=== PATIENT | female | born 1990 | race Caucasian/White ===

== ENCOUNTER 2023-02-14 12:22 | Emergency (ER) | payer BC ==
[~2023-02-14] VITALS: Ht 167.6 cm; Wt 161.0 kg
--- OUTSIDE RECORDS SUMMARY | ~2023-02-14 | XMS | Continuity of Care Document ---
Demographics + + + | Address | [address] | | | [place] [address] | + + + | Preferred Language | Unknown | + + + | Marital Status | Never | + + + | Jewish Affiliation | Unknown | + + + | Race | White | + + + | Ethnic Group | Unknown | + + + Author + + + | Author | [facility] | + + + | Organization | [facility] | + + + | Address | [address] | | | [place] [address] | + + + | Phone | | + + + Care Team Providers + + + + | Care Ski Lift Mechanic Name | Role | Phone | + + + + Unavailable | Unavailable | + + + + Allergies No information. Encounters No information. Functional Status No information. Immunizations No information. Medications No information. Problems + + + + | date | description | facility | + + + + | 2022-12-12 11:24 | COUGH, UNSPECIFIED | [facility] | + + + + Procedures No information. Results/Labs No information. Social History No information. Vital Signs No information."
--- OUTSIDE RECORDS SUMMARY | ~2023-02-14 | XMS | Continuity of Care Document ---
Demographics + + + | Address | [address] | | | [place] [address] | + + + | Preferred Language | Unknown | + + + | Marital Status | Never | + + + | Taoism Affiliation | Unknown | + + + | Race | White | + + + | Ethnic Group | Unknown | + + + Author + + + | Author | [facility] | + + + | Organization | [facility] | + + + | Address | [address] | | | [place] [address] | + + + | Phone | | + + + Care Team Providers + + + + | Care Etl Lead Name | Role | Phone | + [...]
[2023-02-14] MEDS ORDERED: PAXLOVID 300-11 EACH PO (12:38)
[2023-02-14] MEDS ORDERED: CYCLOBENZAPRINE10 MG PO (12:38)
[2023-02-14 12:43] VITALS: BP 153/109
== END 2023-02-14 12:44 | disposition home or self-care (01) ==
LOC: ED 12:22
DX: U07.1 COVID-19 (principal); I10 Essential (primary) hypertension
CPT/HCPCS: 99283

== ENCOUNTER 2024-05-14 06:03 | Emergency (ER) | payer BC ==
[~2024-05-14] VITALS: Ht 167.6 cm; Wt 154.8 kg
[~2024-05-14 06:03] MED LIST: CYCLOBENZAPRINE10 MG PO; PAXLOVID 300-11 EACH PO
[2024-05-14 06:27] LABS: BASOPHILS 0.6 % (0-2); EOSINOPHILS 0.8 % (0-6); HEMATOCRIT 39.9 % (35.0-50.0); HEMOGLOBIN 13.5 g/dL (12.0-18.0); LYMPHOCYTES 39.9 % (24-44); MCH 29.4 (27-36); MCHC 33.9 g/dl (30-36); MONOCYTES 8.8 % (0-12); NEUTROPHILS 49.9 % (39-80); PLATELET COUNT 244 K/uL (140-440); RBC 4.59 M/ul (4.3-5.7); RDW 13.2 (10.5-15.0)
[2024-05-14] MEDS ORDERED: KETOROLAC TROMETHAMINE 30 MG/ML VIAL IV ONE (06:30)
[2024-05-14] MEDS ORDERED: ondansetron HCL 4 MG/2 ML VIAL IV ONE (06:30)
[2024-05-14] MEDS ORDERED: FAMOTIDINE 20 MG/ 2 ML VIAL IV ONE (06:30)
[2024-05-14] MEDS ORDERED: LACTATED RINGER'S 1,000 ML IV ONE (06:30)
[2024-05-14 06:37] LABS: ALBUMIN 3.9 g/dL (3.4-5.0); ANION GAP 14.9 (7-21); BILIRUBIN, TOTAL 0.3 ng/dL (0.2-1.0); BUN/CREATININE RATIO 14.1 (6.0-28.6); CALCIUM 9.7 mg/dL (8.5-10.1); CREATININE, SERUM 0.78 mg/dL (0.55-1.02); POTASSIUM 3.9 mmol/L (3.5-5.1); PROTEIN, TOTAL 7.8 g/dL (6.4-8.2)
[2024-05-14 07:32] LABS: BILIRUBIN, URINE NEGATIVE (negative); BLOOD/HGB, URINE TRACE-I (Negative); KETONE, URINE NEGATIVE (Negative); LEUK ESTERASE, URINE NEGATIVE (negative); NITRITE, URINE NEGATIVE (negative); PH, URINE 5.5 (5-7)
[2024-05-14 07:41] LABS: CRYSTALS, URINE NONE SEEN (0-1+); EPITHELIAL CELLS, URINE SQUAMOUS 2+ /lpf (0-1+)
[2024-05-14 07:42] LABS: BACTERIA, URINE RARE /hpf (negative); CASTS, URINE NONE SEEN \\lpf; COLLECTION TYPE, URINE CLEAN CATCH; REFLEX CULTURE, URINE No (No)
[2024-05-14] MEDS ORDERED: ONDANSETRON ODT4 MG SL (08:31)
[2024-05-14] MEDS ORDERED: PERCOCET 5-3251 EACH PO (08:31)
[2024-05-14 08:45] VITALS: BP 160/102
[2024-05-15] MEDS ORDERED: KETOROLAC TROME10 MG PO (08:16)
[2024-05-15] MEDS ORDERED: DICYCLOMINE HCL20 MG PO (08:17)
[2024-05-15] MEDS ORDERED: VALIUM5 MG PO (08:18)
== END 2024-05-14 08:48 | disposition home or self-care (01) ==
LOC: ED 06:03
PROVIDERS: Internal Medicine
DX: R10.12 Left upper quadrant pain (principal); D25.9 Leiomyoma of uterus, unspecified; E66.01 Morbid (severe) obesity due to excess calories; I10 Essential (primary) hypertension
CPT/HCPCS: 36415; 74176; 80053; 81001; 83690; 84703; 85025; 85060; 96374; 96375; 99284-25; J1885; J2405; J7121

== ENCOUNTER 2024-05-15 03:16 | Emergency (ER) | payer BC ==
[~2024-05-15] VITALS: Ht 167.6 cm; Wt 155.0 kg
[~2024-05-15 03:16] MED LIST changes: +ONDANSETRON ODT4 MG SL; +PERCOCET 5-3251 EACH PO
--- OUTSIDE RECORDS SUMMARY | 2024-05-15 03:18 | XMS ---
PreManage Notification: SELVIN MALLORY Security Corporate Strategy Analyst Events No recent Security Events currently on file CRITERIA MET - [facility] - 2 Visits in 30 Days CARE PROVIDERS There are no care providers on record at this time. [facility] has no Care Guidelines for this patient. Shana VISIT COUNT (12 MO.) 2 [facility] NOTE: Visits indicate total known visits. ED/C VISIT TRACKING (12 MO.) 05/15/2024 03:17 [facility] TYPE: Emergency COMPLAINT: - ABD PAIN 05/14/2024 06:03 [facility] TYPE: Emergency COMPLAINT: - ABDOMINAL PAIN 08/16/2023 19:45 [facility] [place] TYPE: Emergency DIAGNOSES: - Nausea with vomiting, unspecified - Unspecified abdominal pain - Abdominal Pain - Dysuria INPATIENT VISIT TRACKING (12 MO.) No inpatient visits to display in this time frame [email or web address]
[2024-05-15 03:52] LABS: EOSINOPHILS 2.1 % (0-6); HEMATOCRIT 38.4 % (35.0-50.0); HEMOGLOBIN 13.1 g/dL (12.0-18.0); LYMPHOCYTES 18.4 % (24-44); MCH 29.8 (27-36); MCHC 34.1 g/dl (30-36); MCV 87.4 fl (81-99); MONOCYTES 7.6 % (0-12); NEUTROPHILS 66.9 % (39-80); PLATELET COUNT 211 K/uL (140-440); RBC 4.39 M/ul (4.3-5.7); RDW 13.1 (10.5-15.0)
[2024-05-15] MEDS ORDERED: FAMOTIDINE 20 MG/ 2 ML VIAL IV ONE (04:00)
[2024-05-15] MEDS ORDERED: LIDOCAINE & ANTACID 35 ML BTL PO ONE (04:00)
[2024-05-15 04:04] LABS: ALBUMIN 3.7 g/dL (3.4-5.0); ALBUMIN/GLOBULIN RATIO 0.95 (1.1-2.4); ALKALINE PHOSPHATASE 69 U/L (46-116); ALT (SGPT) 62 U/L (14-59); ANION GAP 16.3 (7-21); AST (SGOT) 31 U/L (15-37); BILIRUBIN, TOTAL 0.4 ng/dL (0.2-1.0); BUN/CREATININE RATIO 11.26 (6.0-28.6); CALCIUM 8.9 mg/dL (8.5-10.1); CARBON DIOXIDE 25 mmol/L (21-32); CHLORIDE 100 mmol/L (98-107); CREATININE, SERUM 0.71 mg/dL (0.55-1.02); GLOMERULAR FILTRATION RATE,EST 114 mL/min (>60); MAGNESIUM 1.8 mg/dL (1.8-2.4); POTASSIUM 4.3 mmol/L (3.5-5.1); PROTEIN, TOTAL 7.6 g/dL (6.4-8.2); UREA NITROGEN 8 mg/dL (7-18)
[2024-05-15] MEDS ORDERED: HYDROmorphone HCL 1 MG/ML SYR IV ONE (04:30)
[2024-05-15] MEDS ORDERED: ondansetron HCL 4 MG/2 ML VIAL IV ONE (04:45)
[2024-05-15] MEDS ORDERED: KETOROLAC TROMETHAMINE 30 MG/ML VIAL IV ONE (06:30)
[2024-05-15] MEDS ORDERED: MORPHINE SULFATE 4 MG/ML VIAL IV ONE (06:30)
[2024-05-15 07:29] LABS: BILIRUBIN, URINE NEGATIVE (negative); BLOOD/HGB, URINE LARGE (Negative); KETONE, URINE NEGATIVE (Negative); LEUK ESTERASE, URINE NEGATIVE (negative); NITRITE, URINE NEGATIVE (negative)
[2024-05-15 07:36] LABS: BACTERIA, URINE RARE /hpf (negative); CASTS, URINE NONE SEEN \\lpf; COLLECTION TYPE, URINE CLEAN CATCH; CRYSTALS, URINE NONE SEEN (0-1+); EPITHELIAL CELLS, URINE SQUAMOUS 2+ /lpf (0-1+); RED BLOOD CELLS, URINE >50 /hpf (0-5); REFLEX CULTURE, URINE No (No)
[2024-05-15] MEDS ORDERED: KETOROLAC TROME10 MG PO (08:16)
[2024-05-15] MEDS ORDERED: DICYCLOMINE HCL20 MG PO (08:17)
[2024-05-15 08:18] VITALS: BP 138/65
[2024-05-15] MEDS ORDERED: VALIUM5 MG PO (08:18)
== END 2024-05-15 08:26 | disposition home or self-care (01) ==
LOC: ED 03:16
PROVIDERS: Internal Medicine
DX: R10.13 Epigastric pain (principal); R10.12 Left upper quadrant pain; K80.20 Calculus of gallbladder without cholecystitis without obstruction; D25.9 Leiomyoma of uterus, unspecified; I10 Essential (primary) hypertension
CPT/HCPCS: 36415; 71260; 74174; 76705; 80053; 81001; 83690; 83735; 84484; 85025; 85379; 99284-25; J1885; J2270; J2405; Q9967

== ENCOUNTER 2024-07-08 15:40 | Emergency (ER) | payer BC ==
[~2024-07-08] VITALS: Ht 167.6 cm; Wt 155.4 kg
[~2024-07-08 15:40] MED LIST changes: +DICYCLOMINE HCL20 MG PO; +KETOROLAC TROME10 MG PO; +VALIUM5 MG PO
[2024-07-08] MEDS ORDERED: FENOFIBRATE145 MG PO (15:53)
[2024-07-08] MEDS ORDERED: LISINOPRIL-HCT1 EAC1 PO (15:54)
[2024-07-08] MEDS ORDERED: LARIN 1.5 MG-31 EACH PO (15:55)
[2024-07-08] MEDS ORDERED: B12 ACTIVE1000 MCG (15:55)
[2024-07-08] MEDS ORDERED: ondansetron HCL 4 MG/2 ML VIAL IV ONE (16:15)
[2024-07-08] MEDS ORDERED: KETOROLAC TROMETHAMINE 30 MG/ML VIAL IV ONE (16:30)
[2024-07-08 17:00] LABS: EOSINOPHILS 1.4 % (0-6); HEMATOCRIT 36.5 % (35.0-50.0); HEMOGLOBIN 12.6 g/dL (12.0-18.0); LYMPHOCYTES 45.7 % (24-44); MCH 29.7 (27-36); MCHC 34.5 g/dl (30-36); MONOCYTES 7.6 % (0-12); NEUTROPHILS 44.3 % (39-80); PLATELET COUNT 267 K/uL (140-440); RBC 4.25 M/ul (4.3-5.7); RDW 13.7 (10.5-15.0)
[2024-07-08 17:19] LABS: ALBUMIN 3.3 g/dL (3.4-5.0); ALBUMIN/GLOBULIN RATIO 0.89 (1.1-2.4); ANION GAP 14.4 (7-21); BILIRUBIN, TOTAL 0.2 ng/dL (0.2-1.0); BUN/CREATININE RATIO 14.63 (6.0-28.6); CALCIUM 8.7 mg/dL (8.5-10.1); CREATININE, SERUM 0.82 mg/dL (0.55-1.02); POTASSIUM 3.4 mmol/L (3.5-5.1)
[2024-07-08] MEDS ORDERED: HYDROmorphone HCL 1 MG/ML SYR IV ONE (18:15)
[2024-07-08 18:28] LABS: BILIRUBIN, URINE NEGATIVE (negative); BLOOD/HGB, URINE NEGATIVE (Negative); KETONE, URINE NEGATIVE (Negative); LEUK ESTERASE, URINE NEGATIVE (negative); NITRITE, URINE NEGATIVE (negative); PH, URINE 6.5 (5-7)
[2024-07-08 18:35] LABS: REFLEX CULTURE, URINE No (No)
[2024-07-08 18:36] LABS: BACTERIA, URINE 1+ /hpf (negative); CRYSTALS, URINE AMORPHOUS PHOSPH 1+ (0-1+); EPITHELIAL CELLS, URINE SQUAMOUS 3+ /lpf (0-1+); RED BLOOD CELLS, URINE 0-1 /hpf (0-5)
[2024-07-08 18:37] LABS: WHITE BLOOD CELLS, URINE 0-1 /HPF (0-5)
[2024-07-08] MEDS ORDERED: ONDANSETRON ODT4 MG PO (18:55)
[2024-07-08 19:05] VITALS: BP 132/83
== END 2024-07-08 19:05 | disposition home or self-care (01) ==
LOC: ED 15:40
PROVIDERS: Emergency Medicine
DX: K80.20 Calculus of gallbladder without cholecystitis without obstruction (principal); I10 Essential (primary) hypertension; Z87.442 Personal history of urinary calculi; Z79.899 Other long term (current) drug therapy
CPT/HCPCS: 36415; 74176; 76705; 80053; 81001; 83690; 84703; 85025; 96374; 96375; 99284-25; J1885; J2405